=== PATIENT | female | born 1970 | race Caucasian/White ===

== ENCOUNTER → 2018-09-22 | Outpatient (CLI) | payer OTHER ==
[2018-09-22 15:30] LABS: ABSOLUTE EOSINOPHILS 0.5 thou/uL (0.0-0.7); ABSOLUTE LYMPHOCYTES 3.2 thou/uL (0.8-5.3); ABSOLUTE MONOCYTES 0.7 thou/uL (0.0-1.2); ABSOLUTE NEUTROPHILS 4.5 thou/uL (1.6-8.1); BASOPHILS 0.4 %; EOSINOPHILS 5.7 %; HEMATOCRIT 44.3 % (37.0-47.0); HEMOGLOBIN 14.4 gm/dL (12.0-15.0); LYMPHOCYTES 35.4 %; MCH 29.8 pg (26.0-34.0); MCHC 32.6 g/dL (28.0-37.0); MCV 91.5 fL (80.0-100.0); MONOCYTES 7.9 %; MPV 7.4 fl. (7.2-11.1); NUCLEATED RBCS 0 /100WBC; PLATELET COUNT* 358 thou/uL (150-400); POLYS 50.6 %; RBC 4.83 mil/uL (4.20-5.00); RDW-CV 13.5 % (10.5-14.5); WBC 8.9 thou/uL (4.0-11.0)
[2018-09-22 15:42] LABS: ALBUMIN 3.6 g/dL (3.4-5.0); CALCIUM 9.2 mg/dL (8.5-10.1); CREATININE 0.7 mg/dL (0.6-1.3); POTASSIUM 4.5 mmol/L (3.5-5.1); TOTAL BILIRUBIN 0.1 mg/dL (<0.1-1.0); TOTAL PROTEIN 7.6 g/dL (6.4-8.2)
== END ==
LOC: M.LAB 15:01
PROVIDERS: Specialist
DX: R41.3 Other amnesia (principal)

== ENCOUNTER → 2018-09-24 | Outpatient (CLI) | payer OTHER | LOC: M.RAD 12:38 → M.CT 12:38 | DX: M50.322 Other cervical disc degeneration at C5-C6 level (principal); R41.82 Altered mental status, unspecified; M48.02 Spinal stenosis, cervical region; M12.88 Other specific arthropathies, not elsewhere classified, other specified site; W19.XXXA Unspecified fall, initial encounter ==

== ENCOUNTER → 2018-10-09 | Outpatient (CLI) | payer OTHER | LOC: M.MRI 11:09 | DX: M50.21 Other cervical disc displacement, high cervical region (principal); M85.88 Other specified disorders of bone density and structure, other site ==